=== PATIENT | male | born 1955 | race Caucasian/White ===

== ENCOUNTER → 2017-03-14 | Outpatient (CLI) | payer SELFPAY ==
[2017-03-14 13:12] LABS: HEMATOCRIT 44.3 % (37.9-51.0); MEAN CORPUSCULAR HEMOGLOBIN 30.4 pg (27.0-33.4); MEAN CORPUSCULAR HGB CONC 33.9 g/dL (32.0-36.0); MEAN CORPUSCULAR VOLUME 90 fl (80-97); PLATELET COUNT 237 10^3/uL (150-450); RED BLOOD COUNT 4.93 10^6/uL (4.35-5.55); RED CELL DISTRIBUTION WIDTH 13.2 % (11.5-14.0); WHITE BLOOD COUNT 7.6 10^3/uL (4.0-10.5)
[2017-03-14 13:43] LABS: ALANINE AMINOTRANSFERASE 22 U/L (21-72); ALBUMIN 4.1 g/dL (3.5-5.0); ALKALINE PHOSPHATASE 97 U/L (38-126); ASPARTATE AMINO TRANSFERASE 24 U/L (17-59); BLOOD UREA NITROGEN 9 mg/dL (7-20); CARBON DIOXIDE 31 mmol/L (22-30); CHLORIDE 103 mmol/L (98-107); CHOLESTEROL 151.62 mg/dL (0-200); GLUCOSE 88 mg/dL (75-110); TOTAL PROTEIN 6.9 g/dL (6.3-8.2)
[2017-03-14 13:45] LABS: ANION GAP 7 (5-19); CALCIUM 9.3 mg/dL (8.4-10.2); POTASSIUM 4.2 mmol/L (3.6-5.0); SODIUM 141.2 mmol/L (137-145); TRIGLYCERIDES 86 mg/dL (<150)
[2017-03-14 13:48] LABS: BILIRUBIN,TOTAL 0.8 mg/dL (0.2-1.3)
[2017-03-14 13:54] LABS: DIRECT LDL 88 mg/dL (<100)
[2017-03-14 14:13] LABS: BILIRUBIN,DIRECT 0.2 mg/dL (0.0-0.4)
== END ==
LOC: LAB 12:25
PROVIDERS: ATTEND Internal Medicine
DX: Z00.00 Encounter for general adult medical examination without abnormal findings (principal); Z12.5 Encounter for screening for malignant neoplasm of prostate; K51.919 Ulcerative colitis, unspecified with unspecified complications; M25.512 Pain in left shoulder; I10 Essential (primary) hypertension
CPT/HCPCS: 36415; 84443; 85027; 80053; 83036; 80061; G0103

== ENCOUNTER → 2017-03-24 | Outpatient (CLI) | payer MEDICARE, OTHER ==
--- NOTE | 2017-03-24 15:10 | RADIOLOGY REPORT (SQ) ---
EXAM DESCRIPTION: CERV SP 4 OR 5 VIEWS COMPLETED DATE/TIME: 03/24/2017 2:25 pm REASON FOR STUDY: NECK PAIN COMPARISON: None. NUMBER OF VIEWS: Five views including obliques. TECHNIQUE: AP, lateral, obliques and odontoid radiographic images acquired of the cervical spine. LIMITATIONS: None. FINDINGS: MINERALIZATION: Normal. SEGMENTATION: Normal. ALIGNMENT: Normal. VERTEBRAE: Maintained height. No fracture or worrisome bone lesion. DISCS: Multilevel disc space narrowing with osteophytes. POSTERIOR ELEMENTS: Pedicles and facets are intact. No posterior arch defects. Facet arthropathy is present. FORAMINA: Narrowed at the levels of maximal disc and facet disease. HARDWARE: None in the spine. PARASPINAL SOFT TISSUES: Normal. OTHER: No other significant finding. IMPRESSION: SPONDYLOSIS WITHOUT BONE LESION OR FRACTURE. TECHNICAL DOCUMENTATION: JOB ID: [id number] [employer]- All Rights Reserved
--- NOTE | 2017-03-24 15:11 | RADIOLOGY REPORT (SQ) ---
EXAM DESCRIPTION: SHOULDER RIGHT 2 OR MORE VIEWS COMPLETED DATE/TIME: 03/24/2017 2:25 pm REASON FOR STUDY: L SHOULDER PAIN COMPARISON: None. NUMBER OF VIEWS: Three views. TECHNIQUE: Internal rotation, external rotation, and Y view images acquired of the right shoulder. LIMITATIONS: None. FINDINGS: MINERALIZATION: Normal. BONES: No acute fracture or dislocation. No worrisome bone lesions. JOINTS: Narrowing of the subacromial space. Osteophytes in the acromioclavicular joint and glenohume ral joint. VISUALIZED LUNGS AND RIBS: No pneumothorax. No rib fracture. SOFT TISSUES: No radiopaque foreign body. OTHER: No other significant finding. IMPRESSION: DEGENERATIVE CHANGES. NARROWING OF THE SUBACROMIAL SPACE SUGGESTS ROTATOR CUFF PATHOLOG Y. TECHNICAL DOCUMENTATION: JOB ID: [id number] [employer]- All Rights Reserved
--- NOTE | 2017-03-24 15:12 | RADIOLOGY REPORT (SQ) ---
EXAM DESCRIPTION: HIP LEFT AP/LATERAL COMPLETED DATE/TIME: 03/24/2017 2:25 pm REASON FOR STUDY: L HIP PAIN COMPARISON: None. NUMBER OF VIEWS: Two views. TECHNIQUE: AP pelvis and additional frog-leg view of the left hip. LIMITATIONS: None. FINDINGS: MINERALIZATION: Normal. LEFT HIP: Severe deformity. Complete loss of joint space with extensive sclerosis and osteophytes. Marked deformity of the femoral head RIGHT HIP: Mild joint space narrowing with sclerosis and small osteophytes. PUBIS AND ISCHIUM: No fracture. PELVIS: No fracture. SACRUM: No fracture or dislocation. No worrisome bone lesions. LOWER LUMBAR SPINE: No fracture or dislocation. No worrisome bone lesions. No significant disc disea se. SOFT TISSUES: No findings. OTHER: No other significant finding. IMPRESSION: SEVERE DEGENERATIVE CHANGES IN THE LEFT HIP WITH MARKED CHRONIC DEFORMITY. MILD DEGENER ATIVE CHANGES IN THE RIGHT HIP. TECHNICAL DOCUMENTATION: JOB ID: [id number] [employer]- All Rights Reserved
== END ==
LOC: RAD 13:48
PROVIDERS: ATTEND Internal Medicine
DX: M25.552 Pain in left hip (principal); M25.512 Pain in left shoulder; M54.2 Cervicalgia
CPT/HCPCS: 72050

== ENCOUNTER 2017-11-27 09:54 | Day surgery (SDC) | payer MEDICARE, MEDICAID ==
[~2017-11-27 09:54] MED LIST: PROPOFOL INJ 200 MG/20 ML VIAL IV ONE
[2017-11-27 12:02] VITALS: BP 139/75
--- NOTE | 2017-11-27 12:02 | Operative Report ---
Operative Report DATE OF SURGERY: 11/27/17 Operative Report: The risks, benefits and alternatives of the procedure including the risks of bleeding, perforation requiring surgery are explained to the patient in detail and informed consent is obtained. The patient is brought back to the endoscopy suite and placed in the left, lateral decubital position. Timeout was called. Propofol medication is administered. A rectal examination is done which did not reveal any masses, tears or fissures. An Olympus videoscope was inserted into the patient's rectum. The scope was then carefully advanced all the way to the cecum. The cecum was identified by the usual anatomical landmarks including the ileocecal valve as well as the appendiceal office. Photodocumentation is obtained. The scope was then sequentially pulled back via the rest segments of the colon including the ascending colon, hepatic flexure, transverse colon, splenic flexure, descending colon and finally into the rectosigmoid portions of the colon. Retroflexion maneuver is performed. PREOPERATIVE DIAGNOSIS: Previous history of ulcerative colitis. Patient having symptoms of bleeding and blood in the stool POSTOPERATIVE DIAGNOSIS: Inflammation noted from 0-30 cm. This is consistent with erythema, friability, loss of mucosal architecture consistent with ulcerative colitis biopsies are obtained. Normal colonoscopy starting from [address] to the cecum. OPERATION: Colonoscopy with biopsy SURGEON: CRESENCIO QUINTANILLA ANESTHESIA: LMAC TISSUE REMOVED OR ALTERED: As noted above. COMPLICATIONS: None. ESTIMATED BLOOD LOSS: None. INTRAOPERATIVE FINDINGS: As noted above. PROCEDURE: Patient tolerated the procedure well. No immediate postprocedure complications are noted. Patient discharged in good condition. Discharge date 11/27/2017. Discharge diet: Regular. Discharge activity: Regular. 2-3-week follow-up to discuss findings. Patient is instructed call the office or proceed to the emergency room should there be any further problems or questions. Patient may have to switch to Humira therapy.
== END 2017-11-27 11:35 | disposition home or self-care (01) ==
LOC: END 09:54
PROVIDERS: ATTEND Internal Medicine Gastroenterology
DX: K52.9 Noninfective gastroenteritis and colitis, unspecified (principal); K51.019 Ulcerative (chronic) pancolitis with unspecified complications; M16.10 Unilateral primary osteoarthritis, unspecified hip; K92.1 Melena; Z79.899 Other long term (current) drug therapy
CPT/HCPCS: 45380; 88305 ×2; J2704; 811

== ENCOUNTER → 2018-07-19 | Outpatient (CLI) | payer MEDICARE, MEDICAID ==
[2018-07-19 11:49] LABS: HEMOGLOBIN 13.1 g/dL (13.5-17.0); MEAN CORPUSCULAR HGB CONC 33.7 g/dL (32.0-36.0); MEAN CORPUSCULAR VOLUME 89 fl (80-97); PLATELET COUNT 188 10^3/uL (150-450); RED BLOOD COUNT 4.37 10^6/uL (4.35-5.55); RED CELL DISTRIBUTION WIDTH 13.7 % (11.5-14.0); WHITE BLOOD COUNT 6.1 10^3/uL (4.0-10.5)
[2018-07-19 12:14] LABS: ALANINE AMINOTRANSFERASE 21 U/L (21-72); ALBUMIN 3.8 g/dL (3.5-5.0); ALKALINE PHOSPHATASE 80 U/L (38-126); ANION GAP 9 (5-19); ASPARTATE AMINO TRANSFERASE 20 U/L (17-59); BILIRUBIN,DIRECT 0.3 mg/dL (0.0-0.4); BLOOD UREA NITROGEN 15 mg/dL (7-20); CALCIUM 8.9 mg/dL (8.4-10.2); CARBON DIOXIDE 26 mmol/L (22-30); CHLORIDE 107 mmol/L (98-107); CHOLESTEROL 119.42 mg/dL (0-200); GLUCOSE 85 mg/dL (75-110); POTASSIUM 4.2 mmol/L (3.6-5.0); SODIUM 141.7 mmol/L (137-145); TOTAL PROTEIN 6.4 g/dL (6.3-8.2); TRIGLYCERIDES 63 mg/dL (<150)
[2018-07-19 12:29] LABS: DIRECT LDL 63 mg/dL (<100)
== END ==
LOC: LAB 11:05
PROVIDERS: ATTEND Internal Medicine
DX: F41.9 Anxiety disorder, unspecified (principal); I10 Essential (primary) hypertension; K51.919 Ulcerative colitis, unspecified with unspecified complications; Z12.5 Encounter for screening for malignant neoplasm of prostate; Z13.1 Encounter for screening for diabetes mellitus; Z68.31 Body mass index [BMI] 31.0-31.9, adult
CPT/HCPCS: 36415; 85027; 80053; 80061; G0103